=== PATIENT | female | born 1990 | race Hispanic/Latino ===

== ENCOUNTER 2024-01-11 22:48 | Emergency (ER) | payer BC, SELFPAY ==
[2024-01-11 23:01] VITALS: BP 156/96
[2024-01-11 23:16] LABS: Hematocrit 36.9 % (37.0-47.0); Hemoglobin 13.1 g/dL (12.0-16.0); Mean Corp Hgb Conc. 35.5 g/dL (33.0-37.0); Mean Corpuscular Hgb 28.9 pg (27.0-31.0); Mean Corpuscular Volume 81.5 fL (81.0-99.0); Mean Platelet Volume 9.8 fL (7.4-10.4); Platelet Count 333 10^3/uL (130-400); Red Blood Cell Count 4.53 10^6/uL (4.20-5.40); Red Cell Dist. Width 12.4 % (11.5-14.5); White Blood Cell Count 15.1 10^3/uL (4.8-10.8)
[2024-01-11 23:34] LABS: ALT (SGPT) 32 U/L (0-35); AST (SGOT) 29 U/L (14-36); Albumin 5.1 g/dl (3.5-5.0); Alkaline Phosphatase 98 U/L (38-126); Blood Urea Nitrogen 11 mg/dl (7-17); Calcium 10.1 mg/dl (8.4-10.2); Carbon Dioxide 28 mmol/L (22-30); Chloride 99 mmol/L (98-107); Glucose 126 mg/dl (70-99); Lipase 128 U/L (23-300); Potassium 4.2 mmol/L (3.5-5.1); Sodium 139 mmol/L (135-145); Total Bilirubin 0.4 mg/dl (0.2-1.3); Total Protein 8.1 g/dl (6.3-8.2); eGFR > 60.00
[2024-01-12 01:08] VITALS: BMI 39.5
[2024-01-12 01:11] VITALS: BP 129/70
--- NOTE | 2024-01-12 01:27 | ED.GENMED ---
History of Present Illness
<Casper Maxwell DO - Last Filed: 01/12/24 02:19>
General
Chief Complaint: Abdominal Pain
Source: patient
Exam Limitations: none
Time Seen by Provider: 01/12/24 01:27
Nursing documentation reviewed up to this point in time: agreed with
History of Present Illness
History of Present Illness:
33-year-old female presents with abdominal pain, burning in her upper abdomen after eating exacerbated by stress, started about a week ago, had some diarrhea symptoms improved and then worsened over the past day or so she had some ribs tonight which
made her symptoms worse, no fevers, no chest pain, no lower abdominal pain, denies she sexually active with her partner, uses condoms, no prior abdominal surgery she did have acid reflux as a teenager, states the symptoms are similar, she
believes she had an acids at that time does not drink or smoke, does not use NSAIDs does admit to some stressful issues in her personal life
Past History
<Casper Maxwell DO - Last Filed: 01/12/24 02:19>
Past History
ED Past Medical History: GERD
ED Past Surgical History: None
Social History
Tobacco: Non-smoker
Alcohol: None
Drug: None
Living: with family
Employment: Employed
Review of Systems
<Casper Maxwell DO - Last Filed: 01/12/24 02:19>
Review of Systems
All Other Systems: Not applicable
Constitutional: Denies fever or fatigue
EENT: Reports no symptoms
Respiratory: Reports no symptoms
Cardiac: Denies chest pain
ABD/GI: Reports abdominal pain, nausea and diarrhea
: Reports no symptoms
Musculoskeletal: Reports no symptoms
Skin: Reports no symptoms
Neurological: Reports no symptoms
Endocrine: Reports no symptoms
Phy Exam
<Casper Maxwell DO - Last Filed: 01/12/24 02:19>
Physical Exam
Physical Exam:
Physical Exam
General: no apparent distress, not acutely ill
Neck: No jaundice
Heart: s1/s2 regular rate and rhythm, no murmur. equal radial pulses.
Lungs: no acute respiratory distress. clear bilaterally
Abdomen: Soft mild epigastric tenderness no lower abdominal tenderness
Neuro: alert and oriented. no focal neurological deficits
Skin: no rash
Psychiatric: well kept. interactive and cooperative
Extremities: no edema.
Course
<Casper Maxwell, DO - Last Filed: 01/12/24 02:19>
Orders/Labs/Results
Orders:
Orders
01/11/24 23:11
Complete Blood Count/No Diff Urgent
Comprehensive Metabolic Panel Urgent
Lipase Urgent
01/12/24 01:49
Mag Hydrox/Al Hydrox/Simeth [Maalox] 30 ml Phenobarb/Hyoscy/Atropine/Scop [] 10 ml PO NOW
US Abdomen Complete/Upper Urgent
Comment:
Reason For Exam: pian
01/12/24 01:50
Pantoprazole [Protonix] 40 mg PO NOW STA
01/12/24 01:52
Mag Hydrox/Al Hydrox/Simeth [Maalox] 30 ml .ROUTE .STK-MED ONE
Phenobarb/Hyoscy/Atropine/Scop [] 10 ml .ROUTE .STK-MED ONE
Abnormal Lab Results
01/11/24
23:11
WBC 15.1 H 10^3/uL
(4.8-10.8)
Hct 36.9 L %
(37.0-47.0)
Glucose 126 H mg/dl
(70-99)
Albumin 5.1 H g/dl
(3.5-5.0)
01/11/24 23:11
10/28/24 23:11
Vital Signs
Initial and Last Documented VS:
Initial Vital Signs
Temp Pulse Resp BP Pulse Ox
98.4 F 70 20 156/96 96
01/11/24 23:01 01/11/24 23:01 01/11/24 23:01 01/11/24 23:01 01/11/24 23:01
Last Documented Vital Signs
Temp Pulse Resp BP Pulse Ox
98.4 F 53 16 122/77 98
01/11/24 23:01 01/12/24 04:15 01/12/24 04:15 01/12/24 04:15 01/12/24 04:15
<Sofía Villagomez, DO - Last Filed: 01/12/24 04:41>
Orders/Labs/Results
Orders:
Orders
01/11/24 23:11
Complete Blood Count/No Diff Urgent
Comprehensive Metabolic Panel Urgent
Lipase Urgent
01/12/24 01:49
Mag Hydrox/Al Hydrox/Simeth [Maalox] 30 ml Phenobarb/Hyoscy/Atropine/Scop [] 10 ml PO NOW
US Abdomen Complete/Upper Urgent
Comment:
Reason For Exam: pian
01/12/24 01:50
Pantoprazole [Protonix] 40 mg PO NOW STA
01/12/24 01:52
Mag Hydrox/Al Hydrox/Simeth [Maalox] 30 ml .ROUTE .STK-MED ONE
Phenobarb/Hyoscy/Atropine/Scop [] 10 ml .ROUTE .STK-MED ONE
Abnormal Lab Results
01/11/24
23:11
WBC 15.1 H 10^3/uL
(4.8-10.8)
Hct 36.9 L %
(37.0-47.0)
Glucose 126 H mg/dl
(70-99)
Albumin 5.1 H g/dl
(3.5-5.0)
01/11/24 23:11
01/11/24 23:11
Vital Signs
Initial and Last Documented VS:
Initial Vital Signs
Temp Pulse Resp BP Pulse Ox
98.4 F 70 20 156/96 96
01/11/24 23:01 01/11/24 23:01 01/11/24 23:01 01/11/24 23:01 01/11/24 23:01
Last Documented Vital Signs
Temp Pulse Resp BP Pulse Ox
98.4 F 53 16 122/77 98
01/11/24 23:01 01/12/24 04:15 01/12/24 04:15 01/12/24 04:15 01/12/24 04:15
<Casper Maxwell DO - Last Filed: 01/12/24 02:19>
MDM/Problems Addressed
Differential Diagnosis Includes:
Gastritis pancreatitis biliary colic less likely appendicitis or colitis
MDM/Problems Addressed:
Abdominal pain after eating
Chronic conditions affecting care:
Reflux as a teenager
Acute Exacerbation and/or Progression of Chronic Illness:
Reflux as a teenager
<DO Jona Vega Last Filed: 01/12/24 02:19>
*Radiology
Radiology exam reviewed: radiology read reviewed
*Pulse Oximetry
Patient hypoxic: no
*Critical Care Note
Total Time (30-74mins, 75-104mins- exclusive of procedures): Not Applicable
<DO Jona Vega Last Filed: 01/12/24 02:19>
Update Note
Update Note:
Update suspect gastritis or reflux
Has had similar episodes 20 years ago,
Will start on PPI, Maalox
White count noted will perform serial abdominal exams this point low clinical suspicion for appendicitis
<Sofía R. Villagomez, DO - Last Filed: 01/12/24 04:41>
Update Note
Update Note:
Update suspect gastritis or reflux
Has had similar episodes 20 years ago,
Will start on PPI, Maalox
White count noted will perform serial abdominal exams this point low clinical suspicion for appendicitis
01/12/2024 0438 AM
Patient remains comfortable, very minimal epigastric tenderness with deep palpation only. There is no tenderness to the right upper quadrant.
Ultrasound shows cholelithiasis without wall thickening or free fluid. Negative Macario sign.
Her history however is not consistent with acute biliary colic. She reports primarily epigastric discomfort that is immediately worse with eating or drinking associated with some loose stools.
I suspect cholelithiasis is incidental finding.
Recommend bland diet, avoiding caffeinated beverages, alcohol, spicy or fried foods, red sauce as well as avoid fatty foods.
Protonix once daily as prescribed.
Follow-up with primary care physician and will refer to general surgery as well for further evaluation especially if symptoms are unrelieved with above measures.
ED Attending Note
<Casper Maxwell, DO - Last Filed: 01/12/24 02:19>
-
Portions of this chart may have been created with voice recognition software.� Occasional wrong word or��sound alike� substitutions may have occurred due to the inherent limitations of voice recognition software.
Discharge Plan
Departure
Patient Disposition: Home (Routine Discharge)
Date of Disposition: 01/12/24
Time of Disposition: 02:46
Patient with high blood pressure during this ER visit?: No
Condition: Good
Covid-19: Not Applicable
Discharge Problem:
Abdominal pain, Cholelithiasis
Instructions: Acid Reflux and GERD in Adults (DC), Gastritis (DC), Gallstones ED
Prescriptions:
New
pantoprazole [Protonix] 40 mg tablet,delayed release (DR/EC)
40 mg PO DAILY Qty: 30 2RF
Referrals:
Dacia Snow MD [Family Provider] - Next open appointment
Elysia Lopez MD [Active] - Next open appointment
Christoph Luna MD [Active] - As needed
Activity Restrictions/Additional Instructions:
[place] diet nothing fatty or spicy
Limit your caffeine, alcohol, and Motrin or Motrin product use
Start Protonix daily
Interventions
Interventions:
*Risk Screen - Suicide Last Done: 01/11/24 23:01
*General Assessment Last Done: 01/12/24 01:08
*Neglect/Abuse Screening Last Done: 01/11/24 23:01
ED- Fall Risk Assessment Last Done: 01/12/24 01:08
*ED COVID-19 Vaccine History Last Done: 01/12/24 01:08
MQ-Wqciae-Sasegjgrqx Assessment Last Done: 01/12/24 01:25
Discharge Date and Time
Print Language: [email or web address]
[2024-01-12] MEDS: MAALOX 40 PO (01:53)
[2024-01-12] MEDS: PROTONIX 40 MG PO (01:53)
[2024-01-12 04:15] VITALS: BP 122/77
== END 2024-01-12 04:50 | disposition home or self-care (01) ==
LOC: EMR 22:48
PROVIDERS: Emergency Medicine; EMERGENCY PHYSICIAN Emergency Medicine; FAMILY PHYSICIAN Internal Medicine
DX: K80.20 Calculus of gallbladder without cholecystitis without obstruction (principal); K21.9 Gastro-esophageal reflux disease without esophagitis
CPT/HCPCS: 99284; 76700; 80053; 83690; 85027

== ENCOUNTER 2024-03-23 06:21 | Day surgery (SDC) | payer BC, SELFPAY ==
[2024-03-03 10:45] LABS: Hematocrit 37.9 % (37.0-47.0); Hemoglobin 12.6 g/dL (12.0-16.0); Mean Corp Hgb Conc. 33.2 g/dL (33.0-37.0); Mean Corpuscular Hgb 29.2 pg (27.0-31.0); Mean Corpuscular Volume 87.9 fL (81.0-99.0); Mean Platelet Volume 10.9 fL (7.4-10.4); Platelet Count 285 10^3/uL (130-400); Red Blood Cell Count 4.31 10^6/uL (4.20-5.40); Red Cell Dist. Width 12.3 % (11.5-14.5); White Blood Cell Count 8.2 10^3/uL (4.8-10.8)
[2024-03-03 11:36] LABS: ALT (SGPT) 20 U/L (0-35); AST (SGOT) 21 U/L (14-36); Albumin 4.4 g/dl (3.5-5.0); Alkaline Phosphatase 68 U/L (38-126); Blood Urea Nitrogen 9 mg/dl (7-17); Calcium 8.9 mg/dl (8.4-10.2); Carbon Dioxide 28 mmol/L (22-30); Chloride 101 mmol/L (98-107); Glucose 104 mg/dl (70-99); Potassium 3.9 mmol/L (3.5-5.1); Sodium 137 mmol/L (135-145); Total Bilirubin 0.2 mg/dl (0.2-1.3); Total Protein 6.9 g/dl (6.3-8.2); eGFR > 60.00
[2024-03-03 12:28] VITALS: BMI 34.9
[2024-03-23] VITALS (8 sets, daily range): BP systolic 90–129; BP diastolic 40–82; BMI 34.9
[2024-03-23] MEDS: TYLENOL 1000 MG PO (09:23)
[2024-03-23] MEDS: DILAUDID 0.5 MG IV (13:15)
== END 2024-03-23 14:49 | disposition home or self-care (01) ==
LOC: SDS 06:21
PROVIDERS: ATTENDING PHYSICIAN Surgery; FAMILY PHYSICIAN Internal Medicine
DX: K80.20 Calculus of gallbladder without cholecystitis without obstruction (principal)
CPT/HCPCS: 47563; 88304; 36415; 74300; 76000; 80053; 85027